=== PATIENT | female | born 1935 | race Caucasian/White ===

== ENCOUNTER → 2017-11-01 | Outpatient (CLI) | payer OTHER | END | disposition home or self-care (01) | LOC: RAD 09:36 | PROVIDERS: ATTEND Internal Medicine | DX: S32.010A Wedge compression fracture of first lumbar vertebra, initial encounter for closed fracture (principal) | CPT/HCPCS: 22515 ==

== ENCOUNTER → 2017-12-05 | Outpatient (CLI) | payer OTHER | END | disposition home or self-care (01) | LOC: CFH 12:25 | PROVIDERS: ATTEND Internal Medicine | DX: M48.56XA Collapsed vertebra, not elsewhere classified, lumbar region, initial encounter for fracture (principal) | CPT/HCPCS: 71250 ==

== ENCOUNTER 2018-05-25 05:24 | Inpatient (IN) | payer MEDICARE, OTHER ==
[~2018-05-25] VITALS: Ht 170.2 cm; Wt 81.1 kg
[2018-05-25] MEDS ORDERED: ONDANSETRON 2MG/ML, 2ML ONE ×2 (05:48→16:24)
[2018-05-25] MEDS ORDERED: KETOROLAC 30 MG/1 ML ONE (05:48)
[2018-05-25] MEDS ORDERED: SODIUM CHLORIDE FLUSH 10ML SYR IVF ONE ×2 (06:00→07:00)
[2018-05-25] MEDS ORDERED: ONDANSETRON 2MG/ML, 2ML IVPush ONE (06:00)
[2018-05-25] MEDS ORDERED: KETOROLAC 30 MG/1 ML IVPush ONE (06:00)
--- NOTE | 2018-05-25 06:17 | NUR ---
unsuccessful at iv placement x 3; order for torodol changed to im per dr. hutchinson.
--- NOTE | 2018-05-25 06:23 | NUR ---
CALLED PHARMACY ABOUT MEDICATION DOSE. PER PHARMISIST MAX DOSE FOR TORODOL ON THIS PT. IS 30MG.
[2018-05-25 06:24] LABS: BASOPHILS # (AUTO) 0.01 x10^3/uL (0-0.1); BASOPHILS % (AUTO) 0 % (0-1); EOSINOPHILS # (AUTO) 0.01 x10^3/uL (0-0.4); EOSINOPHILS % (AUTO) 0 % (1-7); LYMPHOCYTES # (AUTO) 0.34 x10^3/uL (1-3.4); LYMPHOCYTES % (AUTO) 3 % (22-44); MD NO; MEAN CORPUSCULAR HEMOGLOBIN 30.6 pg (27.0-34.8); MEAN CORPUSCULAR HGB CONC 33.7 g/dL (32.4-35.8); MEAN PLATELET VOLUME 8.5 fL (7.4-10.4); MONOCYTES # (AUTO) 0.42 x10^3/uL (0.2-0.8); MONOCYTES % (AUTO) 3 % (2-9); NEUTROPHILS # (AUTO) 12.97 x10^3/uL (1.8-6.8); NEUTROPHILS % (AUTO) 94 % (42-75); PLATELET COUNT 206 x10^3/uL (130-400); RED BLOOD COUNT 4.54 x10^6/uL (3.82-5.3)
[2018-05-25] MEDS ORDERED: KETOROLAC 30 MG/1 ML IM ONE ×2 (06:30)
[2018-05-25 06:31] LABS: ALANINE AMINOTRANSFERASE 308 U/L (12-78); ALBUMIN 3.1 g/dL (3.4-5.0); ANION GAP 10 mmol/L (5-15); CALCIUM 8.5 mg/dL (8.5-10.1); CHLORIDE 102 mmol/L (98-107); CREATININE 1.17 mg/dL (0.55-1.02)
--- NOTE | 2018-05-25 06:31 | NUR ---
SUMMARY: PT. TO ED WITH C/O MID/LOW BACK PAIN. PT. DENIES INJURY. PT. DENIES DYSURIA BUT NOTED THAT URINE LOOKED ORANGE. PT. UNABLE TO VOID FOR URINE SAMPLE SO FAR. BLOOD WAS DRAWN BUT IV BLEW. PT. MEDICATED PER MAR WITH IM AFTER NEW ORDERS RECEIVED. PT. DENIES ANY ABD PAIN/CP/SOB OR ANY OTHER CONCERNS. DENIES N/T TO EXTREMITIES. NO NEURO DEFICITS. EKG WAS COMPLETD AND PRESENTED TO ALVARO. PT. PLACED ON CONTINUOS PUSLE OX. FRIEND AT FOR SUPPORT.
[2018-05-25 06:33] LABS: ALKALINE PHOSPHATASE 314 U/L (45-117); BILIRUBIN,TOTAL 6.7 mg/dL (0.2-1.0); TOTAL PROTEIN 7.2 g/dL (6.4-8.2)
--- NOTE | 2018-05-25 06:58 | NUR ---
BEDSIDE REPORT FROM SEBAS KOCH. PT RESTING ON [facility]. NO ACUTE DISTRESS NOTED. ULTRASOUND BEDSIDE.
--- NOTE | 2018-05-25 07:25 | NUR ---
PT RESTING ON GURNEY. NO ACUTE DISTRESS NOTED. FRIEND BEDSIDE. NO NEEDS REQUESTED AT THIS TIME.
[2018-05-25] MEDS ORDERED: SODIUM CHLORIDE 0.9% 1,000 ML IV ONE ×2 (08:04→08:30)
--- NOTE | 2018-05-25 08:06 | NUR ---
PT AT IMAGING
--- NOTE | 2018-05-25 08:11 | NUR ---
PT NOW TO MRI
[2018-05-25] MEDS ORDERED: SODIUM CHLORIDE FLUSH 10ML SYR IVF PRN (08:30)
[2018-05-25] MEDS ORDERED: HYDROmorphone 1 MG/ML, 1ML AMP IVPush PRN (08:30)
[2018-05-25] MEDS ORDERED: ONDANSETRON 2MG/ML, 2ML IVPush PRN (08:30)
--- NOTE | 2018-05-25 08:51 | NUR ---
PT BACK FROM IMAGING.
--- NOTE | 2018-05-25 09:07 | NUR ---
REPORT TO SEBAS WINTERS. ALL QUESTIONS ANSWERED. PT AWARE OF NPO STATUS AND VERBALIZED UNDERSTANDING
--- NOTE | 2018-05-25 09:17 | NUR ---
PT BEING TRANSFERRED TO FLOOR. PT LEFT WITH ALL PERSONAL BELONGINGS. SPOKE WITH PRIMARY (RECEIVING) RN REGARDING IVF .
[2018-05-25] MEDS ORDERED: ATOR20TA86 PO (11:03)
[2018-05-25] MEDS ORDERED: LEVO88TA4 PO (11:06)
[2018-05-25 14:13] LABS: MICROSCOPIC INDICATED
[2018-05-25 14:14] LABS: CULTURE INDICATED? YES
[2018-05-25] MEDS ORDERED: KETOROLAC 30 MG/1 ML IVPush PRN (14:30)
[2018-05-25 14:35] VITALS: BP 102/62
[2018-05-25] MEDS: LACTATED RINGERS 1,000 ML IV SCH (14:40)
[2018-05-25] MEDS ORDERED: FENTANYL PF 100 MCG/2ML ONE (15:39)
[2018-05-25] MEDS ORDERED: SUCCINYLCHOLINE 20 MG/ML, 10ML ONE (16:24)
[2018-05-25] MEDS ORDERED: ROCURONIUM 10MG/ML,5ML ONE (16:24)
[2018-05-25] MEDS ORDERED: DEXAMETHASONE 4 MG/ML, 1ML ONE (16:24)
[2018-05-25] MEDS ORDERED: PROPOFOL 10 MG/ML, 20ML ONE (16:24)
[2018-05-25] MEDS ORDERED: NEOSTIGMINE 1 MG/ML, 10ML ONE (16:24)
[2018-05-25] MEDS ORDERED: GLYCOPYRROLATE 0.2MG/1ML, 5ML ONE (16:24)
[2018-05-25] MEDS ORDERED: CEFAZOLIN 1,000 MG ONE (16:24)
[2018-05-25] MEDS ORDERED: OMNIPAQUE 350 MG/ML, 50 ML BOTTLE ONE (16:39)
[2018-05-25] MEDS ORDERED: PROMETHAZINE 25 MG/ML, 1ML IV PRN (17:00)
[2018-05-25] MEDS ORDERED: ONDANSETRON 2MG/ML, 2ML IV PRN (17:00)
[2018-05-25] MEDS ORDERED: FENTANYL PF 100 MCG/2ML IV PRN (17:00)
[2018-05-25] MEDS ORDERED: ACETAMINOPHEN 325 MG TABLET PO PRN (17:00)
[2018-05-25] MEDS ORDERED: ONDANSETRON ODT 8 MG PO PRN (17:00)
[2018-05-25] MEDS ORDERED: OXYcodone 5 MG/5 ML ORAL.SOL UDC PO PRN (17:00)
[2018-05-25] MEDS: PIPERACILLIN/TAZO/PMX 3.375GM 50 ML IV SCH (17:31)
[2018-05-25 19:07] VITALS: BP 109/68
[2018-05-26] MEDS: PIPERACILLIN/TAZO/PMX 3.375GM 50 ML IV SCH ×3 (00:40→17:37)
[2018-05-26 01:59] VITALS: BP 104/62
[2018-05-26 05:20] LABS: ALANINE AMINOTRANSFERASE 194 U/L (12-78); ALBUMIN 2.3 g/dL (3.4-5.0); ANION GAP 6 mmol/L (5-15); CALCIUM 7.6 mg/dL (8.5-10.1); CHLORIDE 110 mmol/L (98-107); CREATININE 0.94 mg/dL (0.55-1.02)
[2018-05-26 05:23] LABS: ALKALINE PHOSPHATASE 223 U/L (45-117); TOTAL PROTEIN 5.9 g/dL (6.4-8.2)
[2018-05-26 05:24] LABS: BASOPHILS % (AUTO) 0 % (0-1); EOSINOPHILS # (AUTO) 0.22 x10^3/uL (0-0.4); EOSINOPHILS % (AUTO) 3 % (1-7); LYMPHOCYTES # (AUTO) 0.64 x10^3/uL (1-3.4); LYMPHOCYTES % (AUTO) 8 % (22-44); MD NO; MEAN CORPUSCULAR HEMOGLOBIN 30.7 pg (27.0-34.8); MEAN CORPUSCULAR HGB CONC 33.6 g/dL (32.4-35.8); MEAN CORPUSCULAR VOLUME 91.6 fL (80-100); MEAN PLATELET VOLUME 8.4 fL (7.4-10.4); MONOCYTES # (AUTO) 0.58 x10^3/uL (0.2-0.8); MONOCYTES % (AUTO) 7 % (2-9); NEUTROPHILS # (AUTO) 6.94 x10^3/uL (1.8-6.8); NEUTROPHILS % (AUTO) 83 % (42-75); PLATELET COUNT 164 x10^3/uL (130-400); RED BLOOD COUNT 3.75 x10^6/uL (3.82-5.3); RED CELL DISTRIBUTION WIDTH 14.2 % (9.6-15.2)
[2018-05-26 06:45] VITALS: BP 113/70
[2018-05-26] MEDS ORDERED: MAGNESIUM HYDROXIDE 8%, 30ML UDC PO PRN (11:00)
[2018-05-26 13:17] VITALS: BP 112/65
[2018-05-26] MEDS: LACTATED RINGERS 1,000 ML IV SCH (14:34)
[2018-05-26] MEDS: SENNA/DOCUSATE TABLET PO SCH (14:34)
[2018-05-26 18:40] VITALS: BP 118/72
[2018-05-27 00:56] VITALS: BP 119/72
[2018-05-27] MEDS: PIPERACILLIN/TAZO/PMX 3.375GM 50 ML IV SCH ×3 (01:23→17:40)
[2018-05-27 07:51] VITALS: BP 111/70
[2018-05-27] MEDS: SENNA/DOCUSATE TABLET PO SCH (09:00)
[2018-05-27] MEDS ORDERED: MIDAZOLAM 1 MG/ML, 2ML ONE (11:42)
[2018-05-27] MEDS ORDERED: FENTANYL PF 100 MCG/2ML ONE ×2 (11:42→13:54)
[2018-05-27] MEDS ORDERED: SUGAMMADEX 200 MG/2 ML IVPush ONE (11:43)
[2018-05-27] MEDS ORDERED: PHENYLEPHRINE 10 MG/ML ONE (12:29)
[2018-05-27] MEDS ORDERED: ROCURONIUM 10MG/ML,5ML ONE (12:29)
[2018-05-27] MEDS ORDERED: DEXAMETHASONE 4 MG/ML, 1ML ONE (12:29)
[2018-05-27] MEDS ORDERED: PROPOFOL 10 MG/ML, 20ML ONE (12:29)
[2018-05-27] MEDS ORDERED: ONDANSETRON 2MG/ML, 2ML ONE (12:29)
[2018-05-27] MEDS ORDERED: CEFOTETAN 1 GM ONE (12:29)
[2018-05-27] MEDS ORDERED: OXYcodone 5 MG/5 ML ORAL.SOL UDC PO PRN (12:30)
[2018-05-27] MEDS ORDERED: MORPHINE SULFATE 4 MG/ML, 1ML IVPush PRN (12:30)
[2018-05-27] MEDS ORDERED: LABETALOL 5MG/ML, 20ML IV PRN (12:30)
[2018-05-27] MEDS ORDERED: LORazepam 2 MG/ML, 1ML IVPush PRN (12:30)
[2018-05-27] MEDS ORDERED: MEPERIDINE/PF 25MG/0.5ML IVPush PRN (12:30)
[2018-05-27] MEDS ORDERED: ACETAMINOPHEN 325 MG TABLET PO PRN (12:30)
[2018-05-27] MEDS ORDERED: BUPIVACAINE/PF-EPI 0.5% 1:200K ONE (13:32)
[2018-05-27] MEDS ORDERED: BUPIVACAINE/PF-EPI 0.5% 1:200K INFIL ONE (13:40)
[2018-05-27] MEDS: FENTANYL PF 100 MCG/2ML IV PRN ×3 (13:55→14:05)
[2018-05-27] MEDS ORDERED: OXYcodone 5 MG/5 ML ORAL.SOL UDC ONE (14:07)
[2018-05-27] MEDS ORDERED: MEPERIDINE/PF 25MG/ML,1ML ONE (14:14)
[2018-05-27] MEDS: LACTATED RINGERS 1,000 ML IV SCH (15:54)
[2018-05-27] MEDS: KETOROLAC 30 MG/1 ML IVPush PRN (15:54)
[2018-05-27 16:12] VITALS: BP 104/68
[2018-05-27] MEDS ORDERED: HYDROmorphone 1 MG/ML, 1ML AMP IV PRN (17:00)
[2018-05-27 18:56] VITALS: BP 95/60
[2018-05-28] MEDS: LACTATED RINGERS 1,000 ML IV SCH ×3 (01:01→23:41)
[2018-05-28] MEDS: PIPERACILLIN/TAZO/PMX 3.375GM 50 ML IV SCH ×3 (01:08→17:44)
[2018-05-28 01:09] VITALS: BP 107/67
[2018-05-28 05:39] LABS: BASOPHILS # (AUTO) 0.03 x10^3/uL (0-0.1); BASOPHILS % (AUTO) 0 % (0-1); EOSINOPHILS # (AUTO) 0.28 x10^3/uL (0-0.4); EOSINOPHILS % (AUTO) 3 % (1-7); LYMPHOCYTES # (AUTO) 1.48 x10^3/uL (1-3.4); LYMPHOCYTES % (AUTO) 15 % (22-44); MD NO; MEAN CORPUSCULAR HEMOGLOBIN 31.1 pg (27.0-34.8); MEAN CORPUSCULAR VOLUME 91.7 fL (80-100); MEAN PLATELET VOLUME 8.2 fL (7.4-10.4); MONOCYTES # (AUTO) 0.86 x10^3/uL (0.2-0.8); MONOCYTES % (AUTO) 9 % (2-9); NEUTROPHILS # (AUTO) 7.13 x10^3/uL (1.8-6.8); NEUTROPHILS % (AUTO) 73 % (42-75); PLATELET COUNT 182 x10^3/uL (130-400); RED BLOOD COUNT 3.28 x10^6/uL (3.82-5.3); RED CELL DISTRIBUTION WIDTH 14.3 % (9.6-15.2)
[2018-05-28 05:44] LABS: CHLORIDE 110 mmol/L (98-107)
[2018-05-28 05:51] LABS: ALANINE AMINOTRANSFERASE 232 U/L (12-78); ALKALINE PHOSPHATASE 188 U/L (45-117); ANION GAP 3 mmol/L (5-15); BILIRUBIN,TOTAL 1.4 mg/dL (0.2-1.0); CALCIUM 7.5 mg/dL (8.5-10.1); CREATININE 0.93 mg/dL (0.55-1.02); TOTAL PROTEIN 5.4 g/dL (6.4-8.2)
[2018-05-28 07:26] VITALS: BP 113/70
[2018-05-28] MEDS: SENNA/DOCUSATE TABLET PO SCH (09:00)
[2018-05-28] MEDS: KETOROLAC 30 MG/1 ML IVPush PRN (09:12)
[2018-05-28 12:48] VITALS: BP 107/66
[2018-05-28 20:33] VITALS: BP 108/65
[2018-05-29] MEDS: PIPERACILLIN/TAZO/PMX 3.375GM 50 ML IV SCH ×3 (02:06→18:27)
[2018-05-29 02:17] VITALS: BP 127/75
[2018-05-29] MEDS: LEVOTHYROXINE 88 MCG TABLET PO SCH (05:36)
[2018-05-29 05:56] LABS: BASOPHILS # (AUTO) 0.02 x10^3/uL (0-0.1); BASOPHILS % (AUTO) 0 % (0-1); EOSINOPHILS % (AUTO) 3 % (1-7); LYMPHOCYTES # (AUTO) 1.82 x10^3/uL (1-3.4); LYMPHOCYTES % (AUTO) 19 % (22-44); MD NO; MEAN CORPUSCULAR HEMOGLOBIN 30.8 pg (27.0-34.8); MEAN CORPUSCULAR HGB CONC 34.1 g/dL (32.4-35.8); MEAN CORPUSCULAR VOLUME 90.5 fL (80-100); MEAN PLATELET VOLUME 7.8 fL (7.4-10.4); MONOCYTES # (AUTO) 0.86 x10^3/uL (0.2-0.8); MONOCYTES % (AUTO) 9 % (2-9); NEUTROPHILS # (AUTO) 6.57 x10^3/uL (1.8-6.8); NEUTROPHILS % (AUTO) 69 % (42-75); PLATELET COUNT 183 x10^3/uL (130-400); RED CELL DISTRIBUTION WIDTH 14.1 % (9.6-15.2)
[2018-05-29 06:08] LABS: CALCIUM 7.6 mg/dL (8.5-10.1); CHLORIDE 108 mmol/L (98-107)
[2018-05-29 06:14] LABS: ALANINE AMINOTRANSFERASE 182 U/L (12-78); ALBUMIN 1.9 g/dL (3.4-5.0); ALKALINE PHOSPHATASE 175 U/L (45-117); ANION GAP 4 mmol/L (5-15); BILIRUBIN,TOTAL 1.2 mg/dL (0.2-1.0); CREATININE 0.73 mg/dL (0.55-1.02); TOTAL PROTEIN 5.3 g/dL (6.4-8.2)
[2018-05-29 07:08] VITALS: BP 123/73
[2018-05-29] MEDS: OXYcodone IR 5MG TABLET PO PRN ×2 (08:12→20:16)
[2018-05-29] MEDS: SENNA/DOCUSATE TABLET PO SCH (08:12)
[2018-05-29 12:27] VITALS: BP 110/68
[2018-05-29] MEDS ORDERED: LACTATED RINGERS 1,000 ML IV SCH (14:00)
[2018-05-29 20:02] VITALS: BP 106/67
[2018-05-30 01:16] VITALS: BP 120/70
[2018-05-30] MEDS: PIPERACILLIN/TAZO/PMX 3.375GM 50 ML IV SCH ×2 (02:16→10:17)
[2018-05-30 05:23] LABS: BASOPHILS # (AUTO) 0.05 x10^3/uL (0-0.1); BASOPHILS % (AUTO) 1 % (0-1); EOSINOPHILS % (AUTO) 3 % (1-7); LYMPHOCYTES # (AUTO) 1.68 x10^3/uL (1-3.4); LYMPHOCYTES % (AUTO) 19 % (22-44); MD NO; MEAN CORPUSCULAR HGB CONC 33.9 g/dL (32.4-35.8); MEAN CORPUSCULAR VOLUME 91.6 fL (80-100); MEAN PLATELET VOLUME 7.8 fL (7.4-10.4); MONOCYTES # (AUTO) 0.61 x10^3/uL (0.2-0.8); MONOCYTES % (AUTO) 7 % (2-9); NEUTROPHILS % (AUTO) 71 % (42-75); PLATELET COUNT 227 x10^3/uL (130-400); RED BLOOD COUNT 2.96 x10^6/uL (3.82-5.3)
[2018-05-30] MEDS: LEVOTHYROXINE 88 MCG TABLET PO SCH (05:28)
[2018-05-30 06:49] LABS: ALBUMIN 1.8 g/dL (3.4-5.0); ANION GAP 5 mmol/L (5-15); CALCIUM 7.5 mg/dL (8.5-10.1); CHLORIDE 109 mmol/L (98-107)
[2018-05-30 06:52] LABS: ALANINE AMINOTRANSFERASE 145 U/L (12-78); ALKALINE PHOSPHATASE 161 U/L (45-117); BILIRUBIN,TOTAL 1.1 mg/dL (0.2-1.0); TOTAL PROTEIN 5.1 g/dL (6.4-8.2)
[2018-05-30 07:19] VITALS: BP 131/66
[2018-05-30] MEDS: SENNA/DOCUSATE TABLET PO SCH (09:25)
[2018-05-30 14:32] VITALS: BP 113/67
== END 2018-05-30 17:05 | disposition home or self-care (01) | DRG 853 ==
LOC: ED 06:34 → EDIP 08:21 → 3NE 09:20 → DCLOUNGE 05-30 16:50
PROVIDERS: ADMIT Internal Medicine; ATTEND Internal Medicine
PROC: BF101ZZ Fluoroscopy of Bile Ducts using Low Osmolar Contrast (ICD-10-PCS; 2018-05-25)
PROC: 0FC98ZZ Extirpation of Matter from Common Bile Duct, Via Natural or Artificial Opening Endoscopic (ICD-10-PCS; 2018-05-25)
PROC: 0F798DZ Dilation of Common Bile Duct with Intraluminal Device, Via Natural or Artificial Opening Endoscopic (ICD-10-PCS; principal; 2018-05-25 15:30)
PROC: 0FT44ZZ Resection of Gallbladder, Percutaneous Endoscopic Approach (ICD-10-PCS; 2018-05-27)
DX: A41.9 Sepsis, unspecified organism (principal); K85.10 Biliary acute pancreatitis without necrosis or infection; K80.63 Calculus of gallbladder and bile duct with acute cholecystitis with obstruction; J98.11 Atelectasis; D64.9 Anemia, unspecified; E03.9 Hypothyroidism, unspecified; E78.00 Pure hypercholesterolemia, unspecified; G89.29 Other chronic pain; E78.5 Hyperlipidemia, unspecified; K66.0 Peritoneal adhesions (postprocedural) (postinfection); K82.8 Other specified diseases of gallbladder; M81.0 Age-related osteoporosis without current pathological fracture; Z90.49 Acquired absence of other specified parts of digestive tract
CPT/HCPCS: 36415; 71045; 72072; 74181; 74328; 76700; 80053; 81001; 83690; 85025; 87086; 88304; 93005; 99285; G0378; J0690; J1100; J1885; J2175; J2250; J2405; J2543; J2704; J2710; J3010; J3490; Q9967; C1894; C2625; J0330; J2370; J7030; J7120

== ENCOUNTER → 2018-06-28 | Outpatient (CLI) | payer MEDICARE ==
[~2018-06-28] MED LIST: ALEN70TA6 PO; ATOR20TA86 PO; LEVO88TA4 PO; METF500T9 PO
== END | disposition home or self-care (01) ==
LOC: STAR 10:32
PROVIDERS: ATTEND Internal Medicine
DX: Z01.818 Encounter for other preprocedural examination (principal); K81.0 Acute cholecystitis
CPT/HCPCS: 93005

== ENCOUNTER 2018-07-03 06:50 | Day surgery (SDC) | payer MEDICARE ==
[2018-06-28 11:11] VITALS: BP 114/69
[~2018-07-03] VITALS: Ht 170.2 cm; Wt 76.5 kg
[2018-07-03] MEDS ORDERED: LACTATED RINGERS 1,000 ML IV SCH (07:26)
[2018-07-03 07:30] VITALS: BP 114/69
[2018-07-03] MEDS ORDERED: PHENYLEPHRINE 10 MG/ML ONE (09:15)
[2018-07-03] MEDS ORDERED: SUCCINYLCHOLINE 20 MG/ML, 10ML ONE (09:33)
[2018-07-03] MEDS ORDERED: DEXAMETHASONE 4 MG/ML, 1ML ONE ×2 (09:33)
[2018-07-03] MEDS ORDERED: PROPOFOL 10 MG/ML, 20ML ONE (09:33)
[2018-07-03] MEDS ORDERED: FENTANYL PF 100 MCG/2ML ONE (09:34)
[2018-07-03] MEDS ORDERED: ONDANSETRON 2MG/ML, 2ML ONE (09:34)
[2018-07-03] MEDS ORDERED: OMNIPAQUE 350 MG/ML, 50 ML BOTTLE ONE (13:16)
== END 2018-07-03 12:00 | disposition home or self-care (01) ==
LOC: OUT 06:50
PROVIDERS: ATTEND Internal Medicine
DX: K80.50 Calculus of bile duct without cholangitis or cholecystitis without obstruction (principal); E78.5 Hyperlipidemia, unspecified; E03.9 Hypothyroidism, unspecified; Z98.890 Other specified postprocedural states
CPT/HCPCS: 43264; 43276; 74328; C1769; J0330; J1100; J2370; J2405; J2704; J3010; J7120; Q9967